=== PATIENT | male | born 1985 | race Caucasian/White ===

== ENCOUNTER 2020-06-07 14:08 | Emergency (ER) | payer MEDICAID ==
[~2020-06-07] VITALS: Ht 185.4 cm; Wt 86.4 kg
[2020-06-07 15:47] VITALS: BP 130/97
== END 2020-06-07 15:50 ==
LOC: ER 14:08
DX: M25.561 Pain in right knee (principal); Z98.890 Other specified postprocedural states
CPT/HCPCS: 99283

== ENCOUNTER 2020-09-12 11:54 | Emergency (ER) | payer MEDICAID, OTHER ==
[~2020-09-12] VITALS: Ht 185.4 cm; Wt 86.4 kg
[2020-09-12 12:13] VITALS: BP 125/77
== END 2020-09-12 13:46 | disposition left against medical advice (07) ==
LOC: ER 11:54
DX: R51.9 Headache, unspecified (principal); Z04.1 Encounter for examination and observation following transport accident; Z53.21 Procedure and treatment not carried out due to patient leaving prior to being seen by health care provider